=== PATIENT | male | born 1985 | race Caucasian/White ===

== ENCOUNTER 2022-08-16 22:00 | Emergency (ER) | payer OTHER, SELFPAY ==
[2022-08-16 22:09] VITALS: PULSE 94; RESP 18; TEMP 36.7; O2SAT 99; BMI 34.9
--- NOTE | 2022-08-16 23:54 | XRR_ITS ---
PROCEDURE INFORMATION: Exam: XR Chest Exam date and time: 08/17/2022 12:22 AM Age: 36 years old Clinical indication: Cough TECHNIQUE: Imaging protocol: Radiologic exam of the chest. Views: 1 view. COMPARISON: No relevant prior studies available. FINDINGS: Lungs: Unremarkable. No consolidation. Pleural spaces: Unremarkable. No pleural effusion. No pneumothorax. Heart/Mediastinum: Unremarkable. No cardiomegaly. Bones/joints: Unremarkable. XR/XR chest 1V portable [id number] IMPRESSION: No acute findings.
[2022-08-17 00:43] LABS: Basophils # 0.1 10^3/uL (0.0-0.1); Basophils % 0.6 %; Eosinophils # 0.2 10^3/uL (0.0-0.8); Hematocrit 45.3 % (42.0-52.0); Hemoglobin 14.7 g/dL (11.7-16.6); Lymphocytes # 2.9 10^3/uL (0.8-4.8); Lymphocytes % 34.2 %; Mean Corpuscular HGB Conc 32.5 g/dL (30.0-36.0); Mean Corpuscular Hemoglobin 28.8 pg (28.0-34.0); Mean Corpuscular Volume 88.6 fl (80-94); Mean Platelet Volume 9.6 fL (7.4-10.4); Monocytes # 0.7 10^3/uL (0.2-0.9); Monocytes % 7.9 %; Neutrophils # 4.65 10^3/uL (1.8-7.7); Neutrophils % 54.9 %; Nucleated Red Blood Cells % 0 %; Platelet Count 217 10^3/cmm (130-400); Red Blood Count 5.11 10^6/uL (4.1-5.3); Red Cell Distribution Width 12.3 % (12.1-15.1); White Blood Count 8.5 10^3/uL (4.0-10.0)
[2022-08-17 00:53] LABS: Alanine Aminotransferase 20 U/L (0-41); Albumin Level 3.9 g/dL (3.5-5.2); Alkaline Phosphatase 100 U/L (40-130); Anion Gap 14.9 (5-19); Aspartate Amino Transferase 13 U/L (0-40); Blood Urea Nitrogen 18 mg/dL (6-20); Calcium 8.7 mg/dL (8.5-10.5); Carbon Dioxide 23 mmol/L (22-29); Chloride 102 mmol/L (98-107); Globulin 3.3 g/dL (1.3-4.6); Glomerular Filtration Rate 84.1 mL/min (90-130); Glucose 129 mg/dL (65-115); Osmolality Calculated 286 mOsm/kg (285-295); Potassium 3.9 mmol/L (3.5-5.1); Sodium 136 mmol/L (136-145); Total Bilirubin 0.3 mg/dL (0.15-1.2); Total Protein 7.2 g/dL (6.6-8.7)
[2022-08-17 02:58] VITALS: BP 141/104; PULSE 87; RESP 15; O2SAT 94
[2022-08-17 03:29] VITALS: PULSE 82; RESP 16; O2SAT 94
--- NOTE | 2022-08-17 16:17 | ED_ITS ---
HPI - Syncope General: Chief Complaint: Syncope Stated Complaint: cough, syncope Time Seen by Provider: 08/17/22 02:21 Source: patient and family History of Present Illness: 36 year old male with a history of hypertension. He presents with a coughing episode followed by a brief episode of syncope. Syncope was preceded only by cough, which the patient gets often. 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 He denies any fever or sputum production. He relates a wheezy, hacking cough that is episodic a few times a year. He gets significant shooting head pains with his cough at times, but has never passed out before due to the cough. He denies any chest discomfort. No seizure activity. MD complaint: loss of consciousness Onset (ago): hour(s) Duration of episode: 10 -: second(s) Description of event: other Prodromal symptoms: other (cough) Witnessed: Yes - by Bystander Context: at rest Injuries sustained associated with event: face Associated symptoms: Reports headache(s), lightheadedness and short of breath; Deny abdominal pain, chest pain, fever(s) or nausea History: other Treatments prior to arrival: none Review of Systems Const: Denies: fever(s) Eyes: Denies: change in vision ENMT: Denies: throat pain Card: Reports: lightheadedness; Denies: chest pain Resp: Reports: non-productive cough and wheezing GI: Denies: abdominal pain or nausea Neuro: Reports: headache(s) PFS ED PFSH: Medical History Psychiatric care Social History Smoking and tobacco status: former smoker Quit status (tobacco): has quit using tobacco Year quit tobacco: 2008 Second hand smoke exposure: No Smoking risk assessment/counseling performed?: No Alcohol intake: current Alcohol intake frequency: few times a week Alcohol type: beer Desire information about alcohol rehabilitation?: No Counseling given: Yes Other alcohol counseling details: Alcohol & medications don't mix. Substance/Drug Use: never Desire information about substance/drug rehabilitation?: No Counseling given: No Physical Exam Const: COMMON NORMALS: no acute distress GENERAL APPEARANCE: cooperative; not ill appearing and not frail appearing HENMT: COMMON NORMALS: normocephalic, atraumatic and Normal external nose present HEAD & SCALP: normocephalic and atraumatic FACE & SINUS: normal facial exam and face symmetric NOSE: Normal external nose present Eye: COMMON NORMALS: Equal, round and reactive pupils present and EOMs intact bilaterally PUPIL: Yes Equal, round and reactive pupils present Neck/C-Spine: GENERAL: Yes trachea midline Chest: CHEST: Yes Symmetrical chest wall rise Resp: COMMON NORMALS: normal respiratory effort, No retractions, No use of accessory muscles and clear to auscultation bilaterally AUSCULTATION: clear to auscultation bilaterally Cardio: COMMON NORMALS: regular rate and regular rhythm RATE: regular rate RHYTHM: regular rhythm GI: COMMON NORMALS: Normal to inspection, nondistended, normoactive bowel sounds present Extremity: COMMON NORMALS: no pedal edema Neuro: RUBEN COMA SCALE: document GCS findings Ruben coma scale eye opening: Spontaneous Ruben coma scale verbal response: Orientated [place] coma scale motor response: Obey commands Ruben coma scale total score: 15 SENSORY EXAM: Yes extremities (intact) Psych: COMMON NORMALS: speech normal SPEECH: Yes normal speech Skin: COMMON NORMALS: no rashes or lesions noted GENERAL SKIN EXAM: no rashes or lesions noted Course Vital Signs: Vital signs: Vital Signs Temperature 98.1 F 08/16/22 22:09 Pulse Rate 82 08/17/22 03:29 Respiratory Rate 16 08/17/22 03:29 Blood Pressure 141/104 08/17/22 02:58 Pulse Oximetry 94 08/17/22 03:29 Oxygen Delivery Me thod Room Air 08/17/22 02:58 MDM - Syncope Medical Decision Making CBC is normal. BMP and liver enzymes are not remarkable. Chest X-ray is negative. EKG is essentially normal. He had no chest pain. This is an episode of cough syncope. He was counseled on this. close outpatient follow up. Lisinopril could be a culprit for the cough if not resolved. We will treat his reactive airway inducing his wheezy cough to prevent further episodes. Lab Data 08/17/22 00:10 08/17/22 00:10 Radiology Impressions Chest X-Ray 08/16/22 23:54 IMPRESSION: No acute findings. Laboratory Results WBC 8.5 10^3/uL (4.0-10.0) 08/17/22 00:10 RBC 5.11 10^6/uL (4.1-5.3) 08/17/22 00:10 Hgb 14.7 g/dL (11.7-16.6) 08/17/22 00:10 Hct 45.3 % (42.0-52.0) 08/17/22 00:10 MCV 88.6 fl (80-94) 08/17/22 00:10 MCH 28.8 pg (28.0-34.0) 08/17/22 00:10 MCHC 32.5 g/dL (30.0-36.0) 08/17/22 00:10 RDW 12.3 % (12.1-15.1) 08/17/22 00:10 Plt Count 217 10^3/cmm (130-400) 08/17/22 00:10 MPV 9.6 fL (7.4-10.4) 08/17/22 00:10 Neut % (Auto) 54.9 % 08/17/22 00:10 Lymph % (Auto) 34.2 % 08/17/22 00:10 [place] % (Auto) 7.9 % 08/17/22 00:10 Eos % (Auto) 2.0 % 08/17/22 00:10 Baso % (Auto) 0.6 % 08/17/22 00:10 Neut # (Auto) 4.65 10^3/uL (1.8-7.7) 08/17/22 00:10 Lymph # (Auto) 2.9 10^3/uL (0.8-4.8) 08/17/22 00:10 [place] # (Auto) 0.7 10^3/uL (0.2-0.9) 08/17/22 00:10 Eos # (Auto) 0.2 10^3/uL (0.0-0.8) 08/17/22 00:10 Baso # (Auto) 0.1 10^3/uL (0.0-0.1) 08/17/22 00:10 Nucleated RBC % (auto) 0 % 08/17/22 00:10 Nucleated RBCs # 0.0 /100WBC 08/17/22 00:10 Sodium 136 mmol/L (136-145) 08/17/22 00:10 Potassium 3.9 mmol/L (3.5-5.1) 08/17/22 00:10 Chloride 102 mmol/L (98-107) 08/17/22 00:10 Carbon Dioxide 23 mmol/L (22-29) 08/17/22 00:10 Anion Gap 14.9 (5-19) 08/17/22 00:10 BUN 18 mg/dL (6-20) 08/17/22 00:10 Creatinine 1.0 mg/dL (0.7-1.2) 08/17/22 00:10 GFR Calculation 84.1 mL/min (90-130) L 08/17/22 00:10 Glucose 129 mg/dL (65-115) H 08/17/22 00:10 Calculated Osmolality 286 mOsm/kg (285-295) 08/17/22 00:10 Calcium 8.7 mg/dL (8.5-10.5) 08/17/22 00:10 Total Bilirubin 0.3 mg/dL (0.15-1.2) 08/17/22 00:10 AST 13 U/L (0-40) 08/17/22 00:10 ALT 20 U/L (0-41) 08/17/22 00:10 Alkaline Phosphatase 100 U/L (40-130) 08/17/22 00:10 Total Protein 7.2 g/dL (6.6-8.7) 08/17/22 00:10 Albumin 3.9 g/dL (3.5-5.2) 08/17/22 00:10 Globulin 3.3 g/dL (1.3-4.6) 08/17/22 00:10 Discharge Plan Discharge Patient Disposition: Home Clinical Impression: Cough syncope syndrome Condition: Stable Prescriptions: New Medrol (Dario) 4 mg tablets,dose pack See Rx Instructions .ROUTE .COMPLEX Qty: 21 0RF Rx Instructions: orally per package directions albuterol sulfate 90 mcg/actuation HFA aerosol inhaler 2 inh INHALATION Q4H PRN (Reason: shortness of breath or wheezing) Qty: 6.7 1RF No Action hydroxyzine HCl 25 mg tablet 25 mg PO QID PRN (Reason: anxiety) Qty: 120 2RF paroxetine HCl [Paxil] 20 mg tablet 20 mg PO DAILY Qty: 30 2RF lisinopril 10 mg tablet 10 mg PO DAILY Qty: 30 2RF Discharge Orders: Discharge ED (Routine); Ordered 08/17/22 Ordered By: Aravind Carreon Patient Instructions: Syncope (ED), Reactive Airways Disease (ED) Activity Restrictions/Additional Instructions: Medications as directed for significant cough. Use the albuterol every 4 hours while awake for the first 48 hours, then as needed. If cough persists despite treatment, lisinopril is the cause could be considered. Return for repeated episodes of syncope or passing out, chest discomfort, worsening shortness of breath, any other concerning symptoms. Coding Level of Care Code ED Manager Configuration for Wendy Paez
--- NOTE | 2022-08-28 10:31 | DCPLANNER ---
TCM called patient due to no primary care physician - no answer at this time.
== END 2022-08-17 03:25 | disposition home or self-care (01) ==
PROVIDERS: Emergency Provider Emergency Medicine
DX: R55 Syncope and collapse (principal); R05.4 Cough syncope; Z87.891 Personal history of nicotine dependence
CPT/HCPCS: 36415; 71045; 80053; 85025; 99284

== ENCOUNTER 2024-11-01 18:28 | Inpatient (IN) | payer OTHER, SELFPAY ==
[2024-11-01] VITALS (8 sets, daily range): BP systolic 94–109; BP diastolic 58–73; PULSE 88–107; RESP 16; TEMP 37; O2SAT 91–95
--- NOTE | 2024-11-01 18:52 | W.ED.GENADLT ---
HPI - General Adult General: Chief complaint: General Medical Stated complaint: Possible Heat Related Time Seen by Provider: 11/01/24 18:46 Source: patient Mode of arrival: ambulatory Limitations: no limitations History of Present Illness: 39-year-old male states has been outside working throughout the day. He states that he been traveling he states that around 2:00 he started to feel dehydrated lightheaded states has had vomiting since and has felt lightheaded. Has had muscle aches and cramps along with headache. States not been able to tolerate many fluids. Associated symptoms: Reports malaise, nausea and vomiting; Deny chest pain, dyspnea, headache(s) or rash Related Data Previous Rx's ?Medication ?Instructions ?Recorded hydroxyzine HCl 25 mg tablet 25 mg PO QID PRN anxiety #120 tabs 05/22/22 lisinopril 10 mg tablet 10 mg PO DAILY #30 tabs 05/22/22 albuterol sulfate 90 mcg/actuation 2 inh inhalation Q4H PRN shortness 08/17/22 aerosol inhaler of breath or wheezing #6.7 grams methylprednisolone 4 mg tablets in See Rx Instructions PO .COMPLEX 08/17/22 a dose pack (Medrol (Dario)) #21 ea paroxetine HCl 20 mg tablet (Paxil) 20 mg PO DAILY #30 tabs 08/19/22 Allergies Allergy/AdvReac Type Severity Reaction Status Date / Time No Known Allergies Allergy Verified 08/19/22 16:02 Review of Systems Const: Reports: malaise; Denies: fever(s), chills, body aches or change in appetite ENMT: Denies: throat pain or dental pain Card: Denies: chest pain Resp: Denies: dyspnea GI: Reports: nausea and vomiting; Denies: abdominal pain or diarrhea : Denies: dysuria Musc: Denies: neck pain or back pain Skin/Breast: Denies: rash Neuro: Denies: headache(s) PFSH ED PFSH: Social History Smoking and tobacco/nicotine status: former use of tobacco/nicotine Quit status (tobacco/nicotine): has quit using Year quit tobacco: 2008 Second hand smoke exposure: No Alcohol intake: current Alcohol intake frequency: few times a week Alcohol type: beer Substance/Drug Use: never Physical Exam Const: COMMON NORMALS: no acute distress, patient oriented x3 and healthy appearing HENMT: COMMON NORMALS: normocephalic and atraumatic HEAD & SCALP: normocephalic and atraumatic Eye: COMMON NORMALS: conjunctivae normal CONJUNCTIVA: Yes conjunctivae normal Neck/C-Spine: COMMON NORMALS: full ROM and supple Chest: COMMONS NORMALS: normal inspection of the chest Resp: COMMON NORMALS: normal respiratory effort, No use of accessory muscles and clear to auscultation bilaterally AUSCULTATION: clear to auscultation bilaterally Cardio: COMMON NORMALS: regular rhythm and No murmurs present (Cardio) RATE: tachycardic RHYTHM: regular rhythm GI: COMMON NORMALS: Normal to inspection, nondistended, normoactive bowel sounds present, Soft to palpation, non-tender and no masses PALPATION: Yes Soft to palpation Extremity: COMMON NORMALS: normal to inspection and full ROM Neuro: COMMON NORMALS: patient oriented x3, moves all extremities and no focal motor deficits Psych: COMMON NORMALS: mental status grossly normal, Normal thought process present and cooperative THOUGHT PROCESS: Normal thought process present Skin: COMMON NORMALS: no rashes or lesions noted and no wounds GENERAL SKIN EXAM: no rashes or lesions noted Course Vital Signs: Vital signs: Vital Signs Temperature 98.6 F 11/01/24 18:38 Pulse Rate 99 11/01/24 19:30 Respiratory Rate 16 11/01/24 18:38 Blood Pressure 106/59 11/01/24 19:30 Pulse Oximetry 91 11/01/24 19:30 Oxygen Delivery Me thod Room Air 11/01/24 19:30 MDM - General Adult Medical Decision Making Patient presents here with heat exhaustion does have acute kidney injury and hyperkalemia likely from dehydration. He is feeling improved after IV fluids we will give him insulin D25 spoke to hospitalist will admit at this time. Lab Data I reviewed the patient's lab results. 11/01/24 19:10 11/01/24 19:10 Laboratory Results WBC 15.38 10^3/uL (3.29-11.43) H 11/01/24 19:10 RBC 5.80 10^6/uL (3.85-5.65) H 11/01/24 19:10 Hgb 17.50 g/dL (11.27-16.99) H 11/01/24 19:10 Hct 50.7 % (37-53) 11/01/24 19:10 MCV 87.4 fl (82-101) 11/01/24 19:10 MCH 30.2 pg (27-33) 11/01/24 19:10 MCHC 34.5 g/dL (30-55) 11/01/24 19:10 RDW 12.9 % (12.1-15.1) 11/01/24 19:10 Plt Count 297 10^3/cmm (157-399) 11/01/24 19:10 MPV 9.7 fL (7.4-10.4) 11/01/24 19:10 Neut % (Auto) 86.7 % 11/01/24 19:10 Lymph % (Auto) 8.8 % 11/01/24 19:10 [place] % (Auto) 3.7 % 11/01/24 19:10 Eos % (Auto) 0.0 % 11/01/24 19:10 Baso % (Auto) 0.1 % 11/01/24 19:10 Neut # (Auto) 13.33 10^3/uL (1.8-7.7) H 11/01/24 19:10 Lymph # (Auto) 1.4 10^3/uL (0.8-4.8) 11/01/24 19:10 [place] # (Auto) 0.6 10^3/uL (0.2-0.9) 11/01/24 19:10 Eos # (Auto) 0.0 10^3/uL (0.0-0.8) 11/01/24 19:10 Baso # (Auto) 0.0 10^3/uL (0.0-0.1) 11/01/24 19:10 Nucleated RBC % (auto) 0 % 11/01/24 19:10 Nucleated RBCs # 0.0 /100WBC 11/01/24 19:10 Sodium 134 mmol/L (136-145) L 11/01/24 19:10 Potassium 6.6 mmol/L (3.5-5.1) H* 11/01/24 19:10 Chloride 92 mmol/L (98-107) L 11/01/24 19:10 Carbon Dioxide 20 mmol/L (22-29) L 11/01/24 19:10 Anion Gap 28.6 (5-19) H 11/01/24 19:10 BUN 29 mg/dL (6-20) H 11/01/24 19:10 Creatinine 3.8 mg/dL (0.7-1.2) H 11/01/24 19:10 GFR Calculation 17.7 mL/min (90-130) L 11/01/24 19:10 Glucose 128 mg/dL (65-115) H 11/01/24 19:10 Calculated Osmolality 285 mOsm/kg (285-295) 11/01/24 19:10 Calcium 10.5 mg/dL (8.5-10.5) 11/01/24 19:10 Total Bilirubin 0.7 mg/dL (0.15-1.2) 11/01/24 19:10 AST 20 U/L (0-40) 11/01/24 19:10 ALT 29 U/L (0-41) 11/01/24 19:10 Alkaline Phosphatase 90 U/L (40-130) 11/01/24 19:10 Creatine Kinase 297 U/L (39-308) 11/01/24 19:10 Total Protein 9.4 g/dL (6.6-8.7) H 11/01/24 19:10 Albumin 5.2 g/dL (3.5-5.2) 11/01/24 19:10 Globulin 4.2 g/dL (1.3-4.6) 11/01/24 19:10 No radiology studies performed this visit EKG Data EKG 1: I personally reviewed and interpreted this EKG as follows: EKG interpretation date: 11/01/24 EKG interpretation time: 20:34 Interpretation: nsr hr [address] or t wave abnormalities qrs 92 qtc 382 Critical Care Time Critical Care Time: Critical Care Time: Yes Total Critical Care Time: 45 Attestation: The high probability of a clinically significant, sudden or life threatening deterioration of the patient's renal system(s) required my full and direct attention, intervention and personal management. The critical care time is as shown. This time is in addition to time spent performing any reported procedures but includes the following: [x] Data and vital sign review and interpretation [x] Patient assessment, examination and intervention [x] Documentation [x] Medication orders and management Discharge Plan Discharge Patient Disposition: Admitted As Inpatient Clinical Impression: Acute kidney injury, Hyperkalemia, Dehydration, Heat exhaustion Condition: Stable Coding Level of Care Code ED Vendor Specialist for Wendy Paez
[2024-11-01] MEDS: ondansetron 2 mg/ML SDV 2 mL 4 MG IVP (19:12)
[2024-11-01 19:31] LABS: Hematocrit 50.7 % (37-53); Hemoglobin 17.50 g/dL (11.27-16.99); Mean Corpuscular HGB Conc 34.5 g/dL (30-55); Mean Corpuscular Hemoglobin 30.2 pg (27-33); Mean Corpuscular Volume 87.4 fl (82-101); Nucleated Red Blood Cells % 0 %; Platelet Count 297 10^3/cmm (157-399); Red Blood Count 5.80 10^6/uL (3.85-5.65); White Blood Count 15.38 10^3/uL (3.29-11.43)
[2024-11-01 20:11] LABS: Alanine Aminotransferase 29 U/L (0-41); Albumin Level 5.2 g/dL (3.5-5.2); Alkaline Phosphatase 90 U/L (40-130); Anion Gap 28.6 (5-19); Aspartate Amino Transferase 20 U/L (0-40); Blood Urea Nitrogen 29 mg/dL (6-20); Calcium 10.5 mg/dL (8.5-10.5); Carbon Dioxide 20 mmol/L (22-29); Chloride 92 mmol/L (98-107); Creatinine Clr Calc Pharmacy 36.7532; Globulin 4.2 g/dL (1.3-4.6); Glucose 128 mg/dL (65-115); Osmolality Calculated 285 mOsm/kg (285-295); Sodium 134 mmol/L (136-145); Total Protein 9.4 g/dL (6.6-8.7)
[2024-11-01 20:27] LABS: Potassium 6.6 mmol/L (3.5-5.1)
--- NOTE | 2024-11-01 20:34 | ECG_ITS ---
[facility] Pat Name: Eric Graves Department: Room: Gender: Male Transcription Specialist: : [id number] Requested By: Chanelle Olson Order Number: [id number] Reading MD: Measurements Intervals [place] Rate: 90 P: -12 DE: 151 QRS: 5 QRSD: 92 T: -2 QT: 334 QTc: 410 Interpretive Statements SINUS RHYTHM No previous ECG available for comparison [email or web address]
[2024-11-01 21:12] LABS: Estmated Average Glucose 123; Hemoglobin A1C 5.9 % (4.0-6.0)
[2024-11-01] MEDS: insulin regular-human 100 units/1 mL 10 UNIT IVP (21:13)
--- NOTE | 2024-11-01 21:30 | P.HP_ITS ---
Providers/Chief Complaint 2 Admitting Physician: Beti Smith MD Primary Care Provider: AFRIDEH Rider Chief Complaint: Possible Heat Related History of Present Illness Eric Graves is a 39 year old male with a past medical history of hypertension chronically on lisinopril for several years. Patient states he had been working outdoors as his usual for him in the heat and trying to stay hydrated by drinking Gatorade and water in the field and then at home however when he returned home this evening he felt ill. He had generalized diffuse muscle aches and pains, had multiple episodes of vomiting and nausea and noted his urine to be extremely high colored. He started to additionally feel dizzy and lightheaded. Came into the emergency room with the above complaints and was found to have HAY with creatinine at 3.8 and hyperkalemia at 6.6. States that he has been unable to keep any oral intake since this afternoon. Patient typically works outdoors for most of the day and over the past week had been feeling generalized weakness after working. He had attributed this to dehydration from the extreme heat. Denies any fever chills cough chest pain dyspnea abdominal pain or diarrhea. Denies any dysuria. Denies any straining at micturition. Review of Systems 2 General: Reports: 10 or more systems reviewed and unremarkable except in HPI and below Const: Denies: fever(s), chills or body aches Eyes: Denies: change in vision, blurry vision or photophobia ENMT: Reports: hoarseness; Denies: throat pain, enlarged tonsils, odynophagia or nasal congestion Card: Denies: chest pain, palpitations, irregular heart rhythm, edema, swelling of feet/ankles, lightheadedness, pre-syncope, dyspnea on exertion or orthopnea Resp: Denies: dyspnea, productive cough, non-productive cough, wheezing, stridor, pain on inspiration, change in phlegm color, hemoptysis or chest congestion GI: Denies: abdominal pain, nausea, vomiting, hematemesis, coffee ground emesis, dysphagia, heartburn, diarrhea, constipation, GI cramping, change in stool character, hematochezia or melena : Denies: flank pain, dysuria, urinary frequency, urinary urgency, urinary hesitancy or hematuria Musc: Denies: neck pain, back pain, extremity pain, joint swelling, joint warmth or deformity Neuro: Denies: headache(s), numbness in extremities, weakness in extremities, sensory changes, difficulty walking, frequent falls, dizziness, vertigo, behavioral changes, Slurred speech present or seizure-like activity Psych: Denies: anxiety, depression, suicidal ideation or homicidal ideation Endo: Denies: polyuria, polydipsia, tired all the time, cold intolerance or hot flashes Toby/Lymph: Denies: easy bruising or easy bleeding Medications/Allergies Home Medications ?Medication ?Instructions ?Recorded ?Confirmed ?Last Taken ?Type hydroxyzine HCl 25 mg tablet 25 mg PO QID PRN anxiety #120 tabs 05/22/22 08/19/22 Unknown Rx lisinopril 10 mg tablet 10 mg PO DAILY #30 tabs 01/0308/19/22 Unknown Rx albuterol sulfate 90 mcg/actuation 2 inh inhalation Q4 H PRN shortness 08/17/22 08/19/22 Unknown Rx aerosol inhaler of breath or wheezing #6.7 g soheila methylprednisolone 4 mg tablets in See Rx Instructions PO .COMPLEX 08/17/22 08/19/22 Unknown Rx a dose pack (Medrol (Dario)) #21 ea paroxetine HCl 20 mg tablet (Paxil) 20 mg PO DAILY #30 tabs 08/19/22 08/19/22 Unknown Rx Allergies Allergy/AdvReac Type Severity Reaction Status Date / Time No Known Allergies Allergy Verified 08/19/22 16:02 PFSH Acute 2 PFSH: Social History Smoking and tobacco/nicotine status: former use of tobacco/nicotine Quit status (tobacco/nicotine): has quit using Year quit tobacco: 2008 Second hand smoke exposure: No Alcohol intake: current Alcohol intake frequency: few times a week Alcohol type: beer Substance/Drug Use: never Vitals/I&O/Wt Last Vital Signs Temp 98.6 F 11/01/24 18:38 Pulse 91 11/02/24 00:00 Resp 14 11/02/24 00:00 BP 104/56 11/02/24 00:00 Pulse Ox 95 11/02/24 00:00 O2 Del Method Room Air 11/02/24 00:00 11/01/24 11/01/24 11/02/24 14:59 22:59 06:59 Intake Total 2500 / 2500 Balance 2500 / 2500 Weight last 48 hrs Weight 131.542 kg Physical Exam 2 Narrative: General: No acute distress, AO x3 HEENT: PERRLA, pupils bilaterally equal and reactive, pallors not present Chest: Normal vesicular breath sounds, no added sounds, equal good air entry bilaterally CVS: S1-S2 regular, no murmurs, no tachycardia, no gallops, no rubs Abdomen: Soft, nontender, no organomegaly, bowel sounds present Neuro: No focal deficits, no facial deformity, AO x3, power 5/5 in all limbs Data 11/02/24 05:53 11/02/24 00:30 Other Labs: Radiology Impressions Renal Ultrasound 11/02/24 00:26 IMPRESSION: Normal sonographic appearance of the bilateral kidneys and bladder. Laboratory Results WBC 11.38 10^3/uL (3.29-11.43) 11/02/24 05:53 RBC 4.95 10^6/uL (3.85-5.65) 11/02/24 05:53 Hgb 15.00 g/dL (11.27-16.99) 11/02/24 05:53 Hct 43.5 % (37-53) 11/02/24 05:53 MCV 87.9 fl (82-101) 11/02/24 05:53 MCH 30.3 pg (27-33) 11/02/24 05:53 MCHC 34.5 g/dL (30-55) 11/02/24 05:53 RDW 13.3 % (12.1-15.1) 11/02/24 05:53 Plt Count 227 10^3/cmm (157-399) 11/02/24 05:53 MPV 9.5 fL (7.4-10.4) 11/02/24 05:53 Neut % (Auto) 64.9 % 11/02/24 05:53 Lymph % (Auto) 26.2 % 11/02/24 05:53 [place] % (Auto) 8.0 % 11/02/24 05:53 Eos % (Auto) 0.3 % 11/02/24 05:53 Baso % (Auto) 0.2 % 11/02/24 05:53 Neut # (Auto) 7.40 10^3/uL (1.8-7.7) 11/02/24 05:53 Lymph # (Auto) 3.0 10^3/uL (0.8-4.8) 11/02/24 05:53 [place] # (Auto) 0.9 10^3/uL (0.2-0.9) 11/02/24 05:53 Eos # (Auto) 0.0 10^3/uL (0.0-0.8) 11/02/24 05:53 Baso # (Auto) 0.0 10^3/uL (0.0-0.1) 11/02/24 05:53 Nucleated RBC % (auto) 0 % 11/02/24 05:53 Nucleated RBCs # 0.0 /100WBC 11/02/24 05:53 Sodium 137 mmol/L (136-145) 11/02/24 00:30 Potassium 5.1 mmol/L (3.5-5.1) 11/02/24 00:30 Chloride 99 mmol/L (98-107) 11/02/24 00:30 Carbon Dioxide 20 mmol/L (22-29) L 11/02/24 00:30 Anion Gap 23.1 (5-19) H 11/02/24 00:30 BUN 36 mg/dL (6-20) H 11/02/24 00:30 Creatinine 3.3 mg/dL (0.7-1.2) H 11/02/24 00:30 GFR Calculation 20.9 mL/min (90-130) L 11/02/24 00:30 Glucose 126 mg/dL (65-115) H 11/02/24 00:30 POC Glucose 98 mg/dL (70-110) 11/01/24 22:05 Estimat Average Glucose 123 11/01/24 19:10 Hemoglobin A1c 5.9 % (4.0-6.0) 11/01/24 19:10 Calculated Osmolality 294 mOsm/kg (285-295) 11/02/24 00:30 Lactic Acid 2.8 mmol/L (0.5-2.2) H 11/01/24 21:19 Lactic Acid (Sepsis) 2.4 mmol/L (0.5-2.2) H 11/02/24 00:30 Calcium 9.1 mg/dL (8.5-10.5) 11/02/24 00:30 Iron 43 ug/dL (59-158) L 11/01/24 19:10 TIBC 474 mcg/dl 11/01/24 19:10 % Saturation 9.0 % (20-50) L 11/01/24 19:10 Unsat Iron Binding 431 ug/dL (112-347) H 11/01/24 19:10 Total Bilirubin 0.7 mg/dL (0.15-1.2) 11/01/24 19:10 AST 20 U/L (0-40) 11/01/24 19:10 ALT 29 U/L (0-41) 11/01/24 19:10 Alkaline Phosphatase 90 U/L (40-130) 11/01/24 19:10 Creatine Kinase 297 U/L (39-308) 11/01/24 19:10 Total Protein 9.4 g/dL (6.6-8.7) H 11/01/24 19:10 Albumin 5.2 g/dL (3.5-5.2) 11/01/24 19:10 Globulin 4.2 g/dL (1.3-4.6) 11/01/24 19:10 Vitamin B12 390 pg/mL (232-1245) 11/01/24 19:10 Procalcitonin 0.53 ng/mL (0-0.5) H 11/01/24 19:10 TSH 0.98 uIU/mL (0.27-4.20) 11/02/24 00:30 Urine Color Dark yellow (Yellow) A 11/01/24 22:20 Urine Appearance Turbid (CLEAR) A 11/01/24 22:20 Urine pH 5.0 (5-7) 11/01/24 22:20 Ur Specific [place] 1.025 (1.005-1.030) 11/01/24 22:20 Urine Protein 4+ (Negative) A 11/01/24 22:20 Urine Glucose (UA) Trace (Normal) H 11/01/24 22:20 Urine Ketones 1+ (Negative) H 11/01/24 22:20 Urine Blood Negative (Negative) 11/01/24 22:20 Urine Nitrate Negative (Negative) 11/01/24 22:20 Urine Bilirubin Negative (Negative) 11/01/24 22: Urine Urobilinogen 1.0 mg/dL (Negative) 11/01/24 22:20 Ur Leukocyte Esterase Trace (Negative) A 11/01/24 22:20 Urine RBC 0-2 /hpf (0-2) 11/01/24 22:20 Urine WBC 0-5 /hpf (0-5) 11/01/24 22:20 Ur Squamous Epith Cells 11-20 /hpf (0-5) H 11/01/24 22:20 Amorphous Sediment Not Reportable 11/01/24 22:20 Urine Bacteria None seen /hpf (NONE) 11/01/24 22:20 Hyaline Casts 158.89 /lpf 11/01/24 22:20 Ur Random Sodium 21 mmol/L 11/01/24 22:20 Ur Random Potassium > 100 mmol/L 11/01/24 22:20 Ur Random Chloride 33 mmol/L 11/01/24 22:20 Urine Creatinine 389 mg/dL (39-259) H 11/01/24 22:20 Urine Opiates Screen Negative ng/mL (Negative) 11/01/24 22:20 Ur Barbiturates Screen Negative ng/mL (Negative) 11/01/24 22:20 Ur Phencyclidine Scrn Negative ng/mL (Negative) 11/01/24 22:20 Ur Amphetamines Screen Negative ng/mL (Negative) 11/01/24 22:20 U Benzodiazepines Scrn Negative ng/mL (Negative) 11/01/24 22:20 Urine Cocaine Screen Negative ng/mL (Negative) 11/01/24 22:20 U Marijuana (THC) Screen Negative ng/mL (Negative) 11/01/24 22:20 Hepatitis A IgM Ab Non-reactive (Nonreactive) 11/01/24 21:19 Hep Bs Antigen Non-reactive (Nonreactive) 11/01/24 21:19 Hep B Core Total Ab Non-reactive (Nonreactive) 11/01/24 21:19 Hepatitis C Antibody Non-reactive (Nonreactive) 11/01/24 21:19 A&P Assessment and plan 1. Acute kidney injury: 39-year-old male with history as noted above presenting to the hospital with above complaints. Found to have HAY with creatinine at 3.8, potassium at 6.6. Patient reports poor urine output during the day today. Most likely this is related to dehydration and volume loss from heat exhaustion and multiple episodes of vomiting. His nausea is currently improving Ordered renal ultrasound to evaluate for any obstructive uropathy. CK noted normal at 297. Started on IV fluids normal saline at 100 cc/h Trend BMP at 11 PM and then with a.m. labs. Hold lisinopril 2. Hyperkalemia: Hyperkalemia with potassium at 6.6. No noted EKG changes. Will administer insulin dextrose and Kayexalate for treatment. Serial recheck of potassium at 11 PM and then with a.m. labs Hold lisinopril 3. Dehydration: Dehydration likely from extreme heat 4. Heat exhaustion: Plan: DVT prophylaxis heparin 5000 subcutaneously every 12 hours Full code PDMP PDMP Reviewed: Not Reviewed Attestations 2 Medical Necessity Statement*: Greater than 2 midnight stay is currently anticipated Coding Level of Care Code Acute Code for Chg Fwd High MDM includes number and complexity of problems actively addressed during encounter, amount and/or complexity of data reviewed/ordered and described risk of complication, morbidity or mortality of management as documented Diagnoses Acute kidney injury N17.9 Hyperkalemia E87.5 Dehydration E86.0 Heat exhaustion T67.5XXA
[2024-11-01 21:44] LABS: Lactic Sepsis W/Reflex 2.8 mmol/L (0.5-2.2)
[2024-11-01 22:36] LABS: Glucose Urine UA Trace (Normal); Nitrate Urine Negative (Negative); Specific Gravity, Urine 1.025 (1.005-1.030)
[2024-11-01 22:40] LABS: Add Urine Microscopic? YES; Universal Test for UA Present (0)
[2024-11-01 22:43] LABS: PCP Screen Urine Negative (Negative)
[2024-11-01 23:10] LABS: UA Slide Review UA Slide Review Perf
[2024-11-01 23:13] LABS: Reflex Lactate Order REFLEX LACTIC ORDERD
[2024-11-01 23:18] LABS: Urine Random Chloride 33 mmol/L; Urine Random Sodium 21 mmol/L
[2024-11-01 23:29] LABS: Iron 43 ug/dL (59-158); Total Iron Binding Capacity 474 mcg/dl; Unsaturated Iron Binding 431 ug/dL (112-347)
[2024-11-01 23:38] LABS: Potassium, Radom Urine > 100 mmol/L
[2024-11-01 23:44] LABS: Procalcitonin 0.53 ng/mL (0-0.5); Vitamin B12 390 pg/mL (232-1245)
[2024-11-02] VITALS (11 sets, daily range): BP systolic 95–155; BP diastolic 48–85; PULSE 80–99; RESP 14–20; TEMP 36.6–36.8; O2SAT 92–99; BMI 39.3
--- NOTE | 2024-11-02 00:26 | USR_ITS ---
PROCEDURE INFORMATION: Exam: US Retroperitoneal, Complete, Kidneys and Bladder Exam date and time: 11/02/2024 1:15 AM Age: 39 years old Clinical indication: Other: Elevated bun and creatinine; Additional info: Assess for hydropnephrosis TECHNIQUE: Imaging protocol: Real-time ultrasound of the retroperitoneum with image documentation. Complete exam focused on the bilateral kidneys and urinary bladder. COMPARISON: No relevant prior studies available. FINDINGS: Right kidney: Normal. 11.7 cm in length with normal cortical thickness and echogenicity. No stones. No hydronephrosis. Left kidney: Normal. 12.8 cm in length with normal cortical thickness and echogenicity. No stones. No hydronephrosis. Urinary bladder: Prevoid volume 64.4 mL. Postvoid volume 3 mL. Both ureteral jets were visualized. US/US renal BI* [id number] IMPRESSION: Normal sonographic appearance of the bilateral kidneys and bladder.
[2024-11-02 00:54] LABS: Lactic Acid level (Lactate) 2.4 mmol/L (0.5-2.2)
[2024-11-02 01:06] LABS: Anion Gap 23.1 (5-19); Blood Urea Nitrogen 36 mg/dL (6-20); Calcium 9.1 mg/dL (8.5-10.5); Carbon Dioxide 20 mmol/L (22-29); Chloride 99 mmol/L (98-107); Creatinine Clr Calc Pharmacy 42.3219; Glucose 126 mg/dL (65-115); Osmolality Calculated 294 mOsm/kg (285-295); Potassium 5.1 mmol/L (3.5-5.1); Sodium 137 mmol/L (136-145); Thyroid Stimulating Hormone 0.98 uIU/mL (0.27-4.20)
[2024-11-02 01:37] LABS: Hepatitis A Antibody IgM Non-Reactive (Nonreactive); Hepatitis B Surface Antigen Non-Reactive (Nonreactive)
[2024-11-02 06:02] LABS: Hematocrit 43.5 % (37-53); Hemoglobin 15.00 g/dL (11.27-16.99); Mean Corpuscular HGB Conc 34.5 g/dL (30-55); Mean Corpuscular Hemoglobin 30.3 pg (27-33); Mean Corpuscular Volume 87.9 fl (82-101); Nucleated Red Blood Cells % 0 %; Platelet Count 227 10^3/cmm (157-399); Red Blood Count 4.95 10^6/uL (3.85-5.65); White Blood Count 11.38 10^3/uL (3.29-11.43)
[2024-11-02 06:23] LABS: Cholesterol 297 mg/dL (0-200); HDL Cholesterol 46 mg/dL (60-100); Triglycerides 365 mg/dL (0-150)
[2024-11-02 06:24] LABS: Alanine Aminotransferase 23 U/L (0-41); Albumin Level 4.3 g/dL (3.5-5.2); Alkaline Phosphatase 66 U/L (40-130); Anion Gap 20.0 (5-19); Aspartate Amino Transferase 15 U/L (0-40); Blood Urea Nitrogen 36 mg/dL (6-20); Calcium 8.7 mg/dL (8.5-10.5); Carbon Dioxide 21 mmol/L (22-29); Chloride 99 mmol/L (98-107); Creatinine Clr Calc Pharmacy 55.8649; Globulin 3.1 g/dL (1.3-4.6); Glucose 121 mg/dL (65-115); Magnesium 2.1 mg/dL (1.7-2.3); Osmolality Calculated 292 mOsm/kg (285-295); Potassium 4.0 mmol/L (3.5-5.1); Sodium 136 mmol/L (136-145); Total Protein 7.4 g/dL (6.6-8.7)
[2024-11-02 06:27] LABS: Procalcitonin 0.26 ng/mL (0-0.5)
--- NOTE | 2024-11-02 10:37 | P.PN_ITS ---
Subjective 2 Subjective: Admitted overnight. H&P and labs appreciated. Today morning patient seen sitting up in chair comfortably. Denies any nausea, vomiting, headache. States feeling a lot better than when he had come in. Vitals/I&O/Wt Last Vital Signs Temp 98.2 F 11/02/24 09:39 Pulse 88 11/02/24 09:39 Resp 17 11/02/24 09:39 BP 128/81 11/02/24 09:39 Pulse Ox 92 11/02/24 09:39 O2 Del Method Room Air 11/02/24 09:39 11/01/24 11/02/24 11/02/24 22:59 06:59 14:59 Intake Total 2500 / 2500 Balance 2500 / 2500 Weight last 48 hrs Weight 131.542 kg Physical Exam 2 Narrative: General: No acute distress, AO x3 HEENT: PERRLA, pupils bilaterally equal and reactive, pallors not present Chest: Normal vesicular breath sounds, no added sounds, equal good air entry bilaterally CVS: S1-S2 regular, no murmurs, no tachycardia, no gallops, no rubs Abdomen: Soft, nontender, no organomegaly, bowel sounds present Neuro: No focal deficits, no facial deformity, AO x3, power 5/5 in all limbs Data 11/02/24 05:53 11/02/24 05:53 A&P Assessment and plan 1. Acute kidney injury: 39-year-old male with history as noted above presenting to the hospital with above complaints. Found to have HAY with creatinine at 3.8, potassium at 6.6. Patient reports poor urine output during the day today. Most likely this is related to dehydration and volume loss from heat exhaustion and multiple episodes of vomiting. His nausea is currently improving. Will appreciate renal ultrasound for negative obstructive nephropathy. Medical reconciliation done for nephrotoxic drugs. Continue with IV fluids at normal saline at 100 cc/h. Monitor BMP in afternoon. Monitor electrolytes. 2. Hyperkalemia: Resolved. Continue to monitor. 3. Dehydration: Dehydration likely from extreme heat 4. Heat exhaustion: Plan: Hypertension: Goal blood pressure less than 140/90 mmHg. Patient takes lisinopril at home. Hold antihypertensive for now. If needed will start patient on amlodipine. Hyperlipidemia: Appreciate lipid panel. Will discuss with patient and start patient on statins as needed. DVT prophylaxis heparin 5000 subcutaneously every 12 hours Full code PDMP PDMP Reviewed: Not Reviewed Attestations 2 Medical Necessity Statement*: Requires further hospitalization for management of acute kidney injury with hyperkalemia in a patient admitted with dehydration and heat exhaustion. Diagnoses Acute kidney injury N17.9 Hyperkalemia E87.5 Dehydration E86.0 Heat exhaustion T67.5XXA
[2024-11-02 15:48] LABS: Anion Gap 18.4 (5-19); Blood Urea Nitrogen 31 mg/dL (6-20); Calcium 8.7 mg/dL (8.5-10.5); Carbon Dioxide 23 mmol/L (22-29); Chloride 99 mmol/L (98-107); Creatinine Clr Calc Pharmacy 77.5901; Glucose 105 mg/dL (65-115); Osmolality Calculated 289 mOsm/kg (285-295); Potassium 4.4 mmol/L (3.5-5.1); Sodium 136 mmol/L (136-145)
[2024-11-02] MEDS: heparin 5,000 unit/mL INJ 1 mL 5000 UNIT SUBCUT ×2 (18:29)
[2024-11-03] VITALS: BP 139/79; PULSE 86; RESP 15; TEMP 36.8
[2024-11-03 04:00] VITALS: BP 130/80; PULSE 82; RESP 15; TEMP 36.7; O2SAT 92
[2024-11-03 05:14] LABS: Hematocrit 41.2 % (37-53); Hemoglobin 13.70 g/dL (11.27-16.99); Mean Corpuscular HGB Conc 33.3 g/dL (30-55); Mean Corpuscular Hemoglobin 30.2 pg (27-33); Mean Corpuscular Volume 90.9 fl (82-101); Nucleated Red Blood Cells % 0 %; Platelet Count 204 10^3/cmm (157-399); Red Blood Count 4.53 10^6/uL (3.85-5.65); White Blood Count 6.04 10^3/uL (3.29-11.43)
[2024-11-03 05:30] LABS: Alanine Aminotransferase 21 U/L (0-41); Albumin Level 3.8 g/dL (3.5-5.2); Alkaline Phosphatase 64 U/L (40-130); Anion Gap 16.1 (5-19); Aspartate Amino Transferase 16 U/L (0-40); Blood Urea Nitrogen 24 mg/dL (6-20); Calcium 8.4 mg/dL (8.5-10.5); Carbon Dioxide 22 mmol/L (22-29); Chloride 102 mmol/L (98-107); Creatinine Clr Calc Pharmacy 117.3917; Globulin 2.7 g/dL (1.3-4.6); Glucose 110 mg/dL (65-115); Magnesium 2.1 mg/dL (1.7-2.3); Osmolality Calculated 285 mOsm/kg (285-295); Potassium 5.1 mmol/L (3.5-5.1); Sodium 135 mmol/L (136-145); Total Protein 6.5 g/dL (6.6-8.7)
[2024-11-03] MEDS: heparin 5,000 unit/mL INJ 1 mL 5000 UNIT SUBCUT (05:31)
[2024-11-03 05:40] VITALS: PULSE 84
[2024-11-03 08:00] VITALS: BP 143/84; PULSE 70; RESP 14; TEMP 36.7; O2SAT 94; O2SAT 97
--- NOTE | 2024-11-03 08:54 | P.DS_ITS ---
Discharge Providers Date of Admission: 11/01/24 20:45 Date of Discharge: November 03, 2024 Attending Provider at Admission: Beti Smith MD Attending Provider at Discharge: Yadiel Mcknight MD Primary Care Provider: FARIDEH Rider Diagnoses at Discharge Discharge Diagnosis 1. Acute kidney injury: 2. Hyperkalemia: 3. Dehydration: 4. Heat exhaustion: Reason for Visit Reason for Visit: Possible Heat Related Brief History: As per HPI: Eric Graves is a 39 year old male with a past medical history of hypertension chronically on lisinopril for several years. Patient states he had been working outdoors as his usual for him in the heat and trying to stay hydrated by drinking Gatorade and water in the field and then at home however when he returned home this evening he felt ill. He had generalized diffuse muscle aches and pains, had multiple episodes of vomiting and nausea and noted his urine to be extremely high colored. He started to additionally feel dizzy and lightheaded. Came into the emergency room with the above complaints and was found to have HAY with creatinine at 3.8 and hyperkalemia at 6.6. States that he has been unable to keep any oral intake since this afternoon. Patient typically works outdoors for most of the day and over the past week had been feeling generalized weakness after working. He had attributed this to dehydration from the extreme heat. Denies any fever chills cough chest pain dyspnea abdominal pain or diarrhea. Denies any dysuria. Denies any straining at micturition. Hospital Course Hospital Course Patient was admitted to the hospital for evaluation and management for acute kidney injury due to hyperkalemia, dehydration due to heat exhaustion and poor oral intake. He was started on IV hydration after which his acute kidney injury and hyperkalemia resolved. His hospitalization was otherwise unremarkable. He is been discharged in medically stable condition on oral amlodipine 10 mg daily, advised to maintain hydration with up to 50 to 60 ounces of liquid daily. He is advised to hold off on taking lisinopril for now. To check his BMP with his PCP in 1 week. Physical Exam Narrative: General: No acute distress, AO x3 HEENT: PERRLA, pupils bilaterally equal and reactive, pallors not present Chest: Normal vesicular breath sounds, no added sounds, equal good air entry bilaterally CVS: S1-S2 regular, no murmurs, no tachycardia, no gallops, no rubs Abdomen: Soft, nontender, no organomegaly, bowel sounds present Neuro: No focal deficits, no facial deformity, AO x3, power 5/5 in all limbs Discharge Data Studies Completed and Pending Completed Studies During Hospitalization Category Date Time Status US renal BI* [id number] Routine Ultrasound 11/02/24 00:26 Completed Pending at discharge Category Date Time Status Complete Blood Count w/Auto AM LABS Lab 11/04/24 04:00 Ordered Comprehensive Metabolic Panel AM LABS Lab 11/04/24 04:00 Ordered Magnesium AM LABS Lab 11/04/24 04:00 Ordered Phosphorus AM LABS Lab 11/04/24 04:00 Ordered Radiology Impressions Renal Ultrasound 11/02/24 00:26 IMPRESSION: Normal sonographic appearance of the bilateral kidneys and bladder. Laboratory Results WBC 6.04 10^3/uL (3.29-11.43) 11/03/24 04:58 RBC 4.53 10^6/uL (3.85-5.65) 11/03/24 04:58 Hgb 13.70 g/dL (11.27-16.99) 11/03/24 04:58 Hct 41.2 % (37-53) 11/03/24 04:58 MCV 90.9 fl (82-101) 11/03/24 04:58 MCH 30.2 pg (27-33) 11/03/24 04:58 MCHC 33.3 g/dL (30-55) 11/03/24 04:58 RDW 13.0 % (12.1-15.1) 11/03/24 04:58 Plt Count 204 10^3/cmm (157-399) 11/03/24 04:58 MPV 9.4 fL (7.4-10.4) 11/03/24 04:58 Neut % (Auto) 51.7 % 11/03/24 04:58 Lymph % (Auto) 39.7 % 11/03/24 04:58 [place] % (Auto) 7.0 % 11/03/24 04:58 Eos % (Auto) 0.8 % 11/03/24 04:58 Baso % (Auto) 0.5 % 11/03/24 04:58 Neut # (Auto) 3.12 10^3/uL (1.8-7.7) 11/03/24 04:58 Lymph # (Auto) 2.4 10^3/uL (0.8-4.8) 11/03/24 04:58 [place] # (Auto) 0.4 10^3/uL (0.2-0.9) 11/03/24 04:58 Eos # (Auto) 0.1 10^3/uL (0.0-0.8) 11/03/24 04:58 Baso # (Auto) 0.0 10^3/uL (0.0-0.1) 11/03/24 04:58 Nucleated RBC % (auto) 0 % 11/03/24 04:58 Nucleated RBCs # 0.0 /100WBC 11/03/24 04:58 Sodium 135 mmol/L (136-145) L 11/03/24 04:58 Potassium 5.1 mmol/L (3.5-5.1) 11/03/24 04:58 Chloride 102 mmol/L (98-107) 11/03/24 04:58 Carbon Dioxide 22 mmol/L (22-29) 11/03/24 04:58 Anion Gap 16.1 (5-19) 11/03/24 04:58 BUN 24 mg/dL (6-20) H 11/03/24 04:58 Creatinine 1.2 mg/dL (0.7-1.2) 11/03/24 04:58 GFR Calculation 67.1 mL/min (90-130) L 11/03/24 04:58 Glucose 110 mg/dL (65-115) 11/03/24 04:58 POC Glucose 98 mg/dL (70-110) 11/01/24 22:05 Estimat Average Glucose 123 11/01/24 19:10 Hemoglobin A1c 5.9 % (4.0-6.0) 11/01/24 19:10 Calculated Osmolality 285 mOsm/kg (285-295) 11/03/24 04:58 Lactic Acid 2.8 mmol/L (0.5-2.2) H 11/01/24 21:19 Lactic Acid (Sepsis) 2.4 mmol/L (0.5-2.2) H 11/02/24 00:30 Calcium 8.4 mg/dL (8.5-10.5) L 11/03/24 04:58 Phosphorus 2.7 mg/dL (2.5-4.5) 11/03/24 04:58 Magnesium 2.1 mg/dL (1.7-2.3) 11/03/24 04:58 Iron 43 ug/dL (59-158) L 11/01/24 19:10 TIBC 474 mcg/dl 11/01/24 19:10 % Saturation 9.0 % (20-50) L 11/01/24 19:10 Unsat Iron Binding 431 ug/dL (112-347) H 11/01/24 19:10 Total Bilirubin 0.4 mg/dL (0.15-1.2) 11/03/24 04:58 AST 16 U/L (0-40) 11/03/24 04:58 ALT 21 U/L (0-41) 11/03/24 04:58 Alkaline Phosphatase 64 U/L (40-130) 11/03/24 04:58 Creatine Kinase 297 U/L (39-308) 11/01/24 19:10 Total Protein 6.5 g/dL (6.6-8.7) L 11/03/24 04:58 Albumin 3.8 g/dL (3.5-5.2) 11/03/24 04:58 Globulin 2.7 g/dL (1.3-4.6) 11/03/24 04:58 Triglycerides 365 mg/dL (0-150) H 11/02/24 05:53 Cholesterol 297 mg/dL (0-200) H 11/02/24 05:53 LDL Cholesterol, Calc 178 mg/dL (50-129) H 11/02/24 05:53 HDL Cholesterol 46 mg/dL (60-100) L 11/02/24 05:53 LDL/HDL Ratio 3.87 RATIO (0.00-3.22) H 11/02/24 05:53 Cholesterol/HDL Ratio 6.46 mg/dL (1.0-5.00) H 11/02/24 05:53 Vitamin B12 390 pg/mL (232-1245) 11/01/24 19:10 Folate 15.3 ng/mL (4.5-32.2) 11/02/24 05:53 Procalcitonin 0.26 ng/mL (0-0.5) 11/02/24 05:53 TSH 0.98 uIU/mL (0.27-4.20) 11/02/24 00:30 Urine Color Dark yellow (Yellow) A 11/01/24 22:20 Urine Appearance Turbid (CLEAR) A 11/01/24 22:20 Urine pH 5.0 (5-7) 11/01/24 22:20 Ur Specific [place] 1.025 (1.005-1.030) 11/01/24 22:20 Urine Protein 4+ (Negative) A 11/01/24 22:20 Urine Glucose (UA) Trace (Normal) H 11/01/24 22:20 Urine Ketones 1+ (Negative) H 11/01/24 22:20 Urine Blood Negative (Negative) 11/01/24 22:20 Urine Nitrate Negative (Negative) 11/01/24 22:20 Urine Bilirubin Negative (Negative) 11/01/24 22:20 Urine Urobilinogen 1.0 mg/dL (Negative) 11/01/24 22:20 Ur Leukocyte Esterase Trace (Negative) A 11/01/24 22:20 Urine RBC 0-2 /hpf (0-2) 11/01/24 22:20 Urine WBC 0-5 /hpf (0-5) 11/01/24 22:20 Ur Squamous Epith Cells 11-20 /hpf (0-5) H 11/01/24 22:20 Amorphous Sediment Not Reportable 11/01/24 22:20 Urine Bacteria None seen /hpf (NONE) 11/01/24 22:20 Hyaline Casts 158.89 /lpf 11/01/24 22:20 Ur Random Sodium 21 mmol/L 11/01/24 22:20 Ur Random Potassium > 100 mmol/L 11/01/24 22:20 Ur Random Chloride 33 mmol/L 11/01/24 22:20 Urine Creatinine 389 mg/dL (39-259) H 11/01/24 22:20 Urine Opiates Screen Negative ng/mL (Negative) 11/01/24 22:20 Ur Barbiturates Screen Negative ng/mL (Negative) 11/01/24 22:20 Ur Phencyclidine Scrn Negative ng/mL (Negative) 11/01/24 22:20 Ur Amphetamines Screen Negative ng/mL (Negative) 11/01/24 22:20 U Benzodiazepines Scrn Negative ng/mL (Negative) 11/01/24 22:20 Urine Cocaine Screen Negative ng/mL (Negative) 11/01/24 22:20 U Marijuana (THC) Screen Negative ng/mL (Negative) 11/01/24 22:20 Hepatitis A IgM Ab Non-reactive (Nonreactive) 11/01/24 21:19 Hep Bs Antigen Non-reactive (Nonreactive) 11/01/24 21:19 Hep Bs Antibody < 3.5 (11.5-1000) L 11/01/24 21:19 Hep B Core Total Ab Non-reactive (Nonreactive) 11/01/24 21:19 Hepatitis C Antibody Non-reactive (Nonreactive) 11/01/24 21:19 Vitals Last Vital Signs Temp 98.1 F 11/03/24 08:00 Pulse 70 11/03/24 08:00 Resp 14 11/03/24 08:00 BP 143/84 11/03/24 08:00 Pulse Ox 94 11/03/24 08:00 O2 Del Method Room Air 11/03/24 08:00 Discharge Plan Discharge Patient Disposition: Home Condition: Stable Prescriptions: New amlodipine 10 mg tablet 10 mg PO DAILY Qty: 60 0RF Discontinued lisinopril 20 mg tablet 20 mg PO BID ibuprofen [Advil] 200 mg Tablet 600 mg PO Q6H PRN (Reason: Fever Or Pain) Discharge Order = DC NOW: Discharge Order (Routine); Ordered 11/03/24 Ordered By: Yadiel Mcknight Referrals: Yusuf Hutchison FNP [Primary Care Provider, [facility]] - 11/17/24 8:45 am Referral Note: Patient Instructions: Dehydration - Adult, Amlodipine (By mouth), Heat Exhaustion - Adult, Opioid Safety, Patient Portal & Caroline Instructions Activity Restrictions/Additional Instructions: Check your blood pressure daily at home maintain blood pressure diary. Goal blood pressures less than 140/90 mmHg. Do not take lisinopril anymore. Instead take amlodipine 5 mg oral daily. Follow-up with your primary care provider with a blood pressure diary in 2 weeks for further adjustment of antihypertensive. Mantain hydration with upto 50 oz of liquid daily Discharge Attestations Time Spent in Discharge Care*: greater than 30 min Specific Discharge Activities: educating patient, discussing with pcp/other providers, discussing with binder caser/social workers/dc planners, documenting/other paperwork and evaluating patient/reviewing data Status at Discharge: Cognitive status at discharge: cognitively intact , Behavioral status at discharge: cooperative , Functional status at discharge: independent ambulation , Overall status at discharge: patient is back to baseline Quality Metrics Clinical Quality Measures [ No reported AMI, CVA or VTE this stay] Coding Level of Care Code 32060 Total time (in minutes) for Discharge: 65 Diagnoses Acute kidney injury N17.9 Hyperkalemia E87.5 Dehydration E86.0 Heat exhaustion T67.5XXA
--- NOTE | 2024-11-03 09:30 | PC.NURSE ---
Patient IV removed at this time. Patient tolerated well. Patient is A&Ox3. Respirations even and non-labored on room air. Patient discharge instructions discussed with him at this time. Patient verbalized understanding of stopping his lisinopril and taking the new medication of Norvasc. Patient verbalisrd understanding of drinking lots of fluids daily. Patient ambulated to private car with a steady gait.
[2024-11-03 11:38] VITALS: BP 138/80; PULSE 70; RESP 16; TEMP 36.8; O2SAT 98
== END 2024-11-03 09:48 | disposition home or self-care (01) | DRG 684 ==
LOC: ER 22:24 → ER IP 11-02 00:29 → MEDSURG 11-02 08:53
PROVIDERS: Admitting Provider Student in an Organized Health Care Education/Training Program; Emergency Provider Emergency Medicine; PCP Registered Nurse; Visit Provider Student in an Organized Health Care Education/Training Program
DX: N17.9 Acute kidney failure, unspecified (principal); E87.5 Hyperkalemia; E86.0 Dehydration; X30.XXXA Exposure to excessive natural heat, initial encounter; T67.5XXA Heat exhaustion, unspecified, initial encounter; I10 Essential (primary) hypertension; Z87.891 Personal history of nicotine dependence
CPT/HCPCS: 36415; 36416; 76770; 80048; 80053; 80061; 80306; 81001; 82436; 82550; 82570; 82607; 82746; 82962; 83036; 83540; 83550; 83605; 83735; 84100; 84133; 84145; 84300; 84443; 85025; 86705; 86706; 86709; 86803; 87340; 93005; 94664; 96361; 96372; 96374; 99285; J1644; J1815; J2405; J7030; J7799; J9999